=== PATIENT | female | born 1995 | race Two or more races ===

== ENCOUNTER 2023-06-08 10:44 | Emergency (ER) | payer MEDICAID, OTHER ==
[~2023-06-08] VITALS: Ht 149.9 cm; Wt 67.9 kg
[2023-06-08 10:55] VITALS: BP 107/78; PULSE 80; RESP 18; O2SAT 100
== END 2023-06-08 18:52 | disposition left against medical advice (07) ==
LOC: ER 10:44
DX: S00.93XA Contusion of unspecified part of head, initial encounter (principal); R07.89 Other chest pain; R51.9 Headache, unspecified; M54.2 Cervicalgia; Z53.21 Procedure and treatment not carried out due to patient leaving prior to being seen by health care provider; V29.99XA Rider (driver) (passenger) of other motorcycle injured in unspecified traffic accident, initial encounter; Y93.89 Activity, other specified; Y92.89 Other specified places as the place of occurrence of the external cause; Y99.8 Other external cause status
CPT/HCPCS: 70450; 71250; 72125

== ENCOUNTER 2024-01-29 07:26 | Emergency (ER) | payer MEDICAID ==
[~2024-01-29] VITALS: Ht 149.9 cm; Wt 54.1 kg
[2024-01-29 09:19] VITALS: BP 107/75; PULSE 110; RESP 17; TEMP 97.9; O2SAT 98
[2024-01-29] MEDS: IBUPROFEN 600 MG TAB PO PRN (11:04)
[2024-01-29] MEDS: CLINDAMYCIN 600MG IV 50 ML IV ONE (13:27)
[2024-01-29] MEDS ORDERED: CLIN1CAP70 PO (15:14)
[2024-01-29] MEDS ORDERED: IBUP-1456 PO (15:14)
== END 2024-01-29 15:13 | disposition home or self-care (01) ==
LOC: ER 07:26
DX: S03.41XA Sprain of jaw, right side, initial encounter (principal); L03.211 Cellulitis of face; M27.2 Inflammatory conditions of jaws; X58.XXXA Exposure to other specified factors, initial encounter; Y93.89 Activity, other specified; Y92.89 Other specified places as the place of occurrence of the external cause; Y99.8 Other external cause status
CPT/HCPCS: 70486; 96365; 99285; J3490

== ENCOUNTER 2024-02-22 14:36 | Emergency (ER) | payer MEDICAID ==
[~2024-02-22] VITALS: Ht 149.9 cm; Wt 56.1 kg
[~2024-02-22 14:36] MED LIST: CLIN1CAP70 PO; IBUP-1456 PO
[2024-02-22 16:26] VITALS: BP 120/72; PULSE 63; RESP 16; TEMP 98.3; O2SAT 97
[2024-02-22] MEDS ORDERED: CEPH500C PO (16:54)
[2024-02-22] MEDS ORDERED: NAPR-746 PO (16:54)
[2024-02-23] MEDS ORDERED: DOXY100C4 PO (19:30)
== END 2024-02-22 17:00 | disposition home or self-care (01) ==
LOC: ER 14:36
DX: S80.862A Insect bite (nonvenomous), left lower leg, initial encounter (principal); S80.861A Insect bite (nonvenomous), right lower leg, initial encounter; F41.9 Anxiety disorder, unspecified; W57.XXXA Bitten or stung by nonvenomous insect and other nonvenomous arthropods, initial encounter; Y93.89 Activity, other specified; Y92.89 Other specified places as the place of occurrence of the external cause; Y99.8 Other external cause status

== ENCOUNTER 2024-02-23 17:50 | Emergency (ER) | payer MEDICAID ==
[~2024-02-23] VITALS: Ht 149.9 cm; Wt 55.3 kg
[~2024-02-23 17:50] MED LIST changes: +CEPH500C PO; +NAPR-746 PO
[2024-02-23 18:55] VITALS: BP 105/66; PULSE 90; RESP 18; O2SAT 99
[2024-02-23] MEDS ORDERED: DOXY100C4 PO (19:30)
== END 2024-02-23 19:43 | disposition home or self-care (01) ==
LOC: ER 17:50
DX: S00.86XA Insect bite (nonvenomous) of other part of head, initial encounter (principal); F41.9 Anxiety disorder, unspecified; W57.XXXA Bitten or stung by nonvenomous insect and other nonvenomous arthropods, initial encounter; Y93.89 Activity, other specified; Y92.89 Other specified places as the place of occurrence of the external cause; Y99.8 Other external cause status